=== PATIENT | female | born 1990 | race Caucasian/White ===

== ENCOUNTER 2016-12-28 17:23 | Emergency (ER) | payer MEDICAID ==
[~2016-12-28] VITALS: Ht 162.6 cm; Wt 104.5 kg
[2016-12-28 17:25] VITALS: BP 134/90; RESP 15; O2SAT 96
--- NOTE | 2016-12-28 17:44 | ED.REPORT ---
HPI-Dental/Mouth Prob Date of Service Dec 28, 2016 ED Provider: History of Present Illness: has an abscess in mouth, is hoping to have an appointment with faby. present for several months. 06/16 Nursing Notes Stated Complaint: INFECTION IN MOUTH Chief Complaint: ENT & Mouth Nursing Notes Reviewed: Yes Allergies: Coded Allergies: shellfish derived (Verified Allergy, Severe, Anaphylaxis, 12/28/16) General Time Seen by MD: 17:43 Chief Complaint Other Hx Obtained From: Patient Onset Occurred: More than a week ago... 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 12/28/2016 Ambulatory Status Independent Review of Systems Basic Review of Systems Eyes: Vision NL, No discharge Endocrine: No cold intolerance, No heat intolerance, No weight gain, No weight loss Psychiatric: Normal thought content Physical Exam Initial Vital Signs Vital Signs (First) Date Time Temp Pulse Resp B/P Pulse Ox O2 Delivery O2 Flow Rate FiO2 12/28/16 17:25 37.3 82 15 134/90 96 Room Air Initial VS: Reviewed, Vital signs normal General/Constitutional: Well-developed, Well-nourished Head / Eyes: Atraumatic, Normocephalic, PERRL Respiratory: Breath sounds normal, Clear to auscultation, No respiratory distress Cardiovascular: Regular rate & rhythm, Heart sounds normal, Intact distal pulses Abdomen / GI: Soft, Non-tender, No guarding, No rebound, No distention Back: No CVA tenderness Lymphatic: No lymphadenopathy Extremities: Vascular intact, Neuro intact, No swelling, No tenderness Skin: Warm, Dry, No cyanosis Neurologic: Alert, Oriented, Nonfocal Psychiatric: Mood/affect normal, Behavior normal, Normal thought content ENT: Atraumatic, Airway patent, Mucous membranes moist, Pharynx NL tooth in question is a lower left molar. The tooth has a crown on with black discolorationvisible. At the base of the gum there is a small 3 mm of yellow discharge visible. No visible facial swelling General/Constitutional: Awake, Alert, No acute distress Head / Eyes: Atraumatic, Normocephalic, PERRL, EOMI Respiratory / Chest: Atraumatic, Breath sounds NL, Breath sounds = bilat, No respiratory distress Cardiovascular: Heart rate NL, Regular rhythm, Heart sounds NL, No gallop Re-Eval/Medical Decision Med Decision/Clinical Course 26 year old female present for evualation of the ongoing abscess in her mouth. She has been delaying care waiting to get insurance to cover what she needs. The tooth is clearly decayed and has a crown on. No sign of uvulitis but clearly has a dental abscess at the site of chronic decay. No sign of the infection impairing her breathing status. Explained to the patient having the tooth opened likely will help with discomfort. Discharge & Departure Primary Impression: Dental abscess Disposition: Home Patient Instructions: Dental Abscess (ED) Additional Instructions: Exam indicates an ongoing infection. Start amoxicillin 500 mg 3 times a day for 10 days. Continue with ibuprofen 800 mg 3 times a day. Can use hydrocodone 1 at night as needed for severe unrelenting pain. You will need to see a dentist sooner than later. The tooth in question is and the infection is coming out at the root. You need the tooth removed. Please go to [facility] in [place] and see if they can get you scheduled. Another option is [facility] in [facility], they are open Thursday thru Thursday. Please call and see if they can see you sooner. Referrals: [facility] EDSupervising Provider for APC: Michelle Hayward MD copies to: [facility]; [facility]; [facility]; [facility]; [facility]; [facility]; [facility] Wilda Roblero Dec 28, 2016 17:44
== END 2016-12-28 18:45 | disposition home or self-care (01) ==
LOC: SED 17:23
DX: K04.7 Periapical abscess without sinus (principal)
CPT/HCPCS: 96372; 99283; J1885